=== PATIENT | male | born 1960 | race Caucasian/White ===

== ENCOUNTER 2021-12-01 19:43 | Outpatient (CLI) | payer OTHER | END 2021-12-01 19:44 | disposition critical access hospital (66) | LOC: EMS 19:43 | DX: R55 Syncope and collapse (principal) | CPT/HCPCS: A0425; A0427 ==

== ENCOUNTER 2021-12-01 20:21 | Emergency (ER) | payer OTHER ==
[2021-12-01 21:12] LABS: BASOPHILS % (AUTO) 0.4 %; EOSINOPHILS # (AUTO) 0.2 10^3/uL (0.0-0.7); EOSINOPHILS % (AUTO) 2.2 %; HCT - HEMATOCRIT 44.3 % (42.0-52.0); HGB - HEMOGLOBIN 14.7 g/dL (14.0-18.0); LYMPHOCYTES # (AUTO) 1.6 10^3/uL (1.5-3.5); LYMPHOCYTES % (AUTO) 18.2 %; MEAN CORPUSCULAR HEMOGLOBIN 30.4 pg (27.0-31.0); MEAN CORPUSCULAR HGB CONC 33.2 g/dL (32.0-36.0); MEAN CORPUSCULAR VOLUME 91.5 fL (80.0-94.0); MEAN PLATELET VOLUME 10.2 fL (7.4-11.4); MONOCYTES # (AUTO) 0.7 10^3/uL (0.0-1.0); MONOCYTES % (AUTO) 8.3 %; NEUTROPHILS # (AUTO) 6.3 10^3/uL (1.5-6.6); NEUTROPHILS % (AUTO) 70.7 %; PLT - PLATELET COUNT 213 10^3/uL (130-450); RED BLOOD COUNT 4.84 10^6/uL (4.70-6.10); RED CELL DISTRIBUTION WIDTH 12.3 % (12.0-15.0); WHITE BLOOD COUNT 8.9 x10^3/uL (4.8-10.8)
[2021-12-01 21:26] LABS: ALBUMIN 3.9 g/dL (3.2-5.5); ALBUMIN/GLOBULIN RATIO 1.3 (1.0-2.2); BILIRUBIN,TOTAL 0.5 mg/dL (0.2-1.0); CALCIUM 8.9 mg/dL (8.5-10.3); CREATININE 0.9 mg/dL (0.6-1.2); POTASSIUM 3.8 mmol/L (3.5-5.0)
[2021-12-01] MEDS ORDERED: SODIUM CHLORIDE 0.9% 1,000 ML IV STA (21:37)
--- NOTE | 2021-12-02 00:11 | ED Physician Documentation ---
PD HPI SYNCOPE - Stated complaint Stated Complaint: SYNCOPE - Chief complaint Chief Complaint: Neuro - History obtained from History obtained from: Patient, Family - Additional information Additional information: Patient is a 61-year-old male with no significant past medical history presenting for evaluation after syncopal episode that occurred around 1930. Patient was sitting down having a drink when he started seeing some stars and then reportedly blacked out for a few seconds according to the . She observed that he had some shaking. She denies that he hit his head. When he came to he was not confused or postictal in appearance. He did not have tongue biting or have bladder incontinence. Patient denies hitting his head or a headache. He denies chest pain, difficulty breathing. He reports feeling well now.Patient denies any unusual activity today or unusual appetite. He has had 3 alcoholic beverages today which she reports is unusual for him. Review of Systems Constitutional: denies: Fever Nose: denies: Congestion Throat: denies: Sore throat Cardiac: denies: Chest pain / pressure Respiratory: denies: Dyspnea, Cough GI: denies: Abdominal Pain, Vomiting : denies: Dysuria Musculoskeletal: denies: Back pain Neurologic: reports: Syncope. denies: Headache, Head injury PD PAST MEDICAL HISTORY - Allergies Allergies/Adverse Reactions: Allergies Allergy/AdvReac Type Severity Reaction Status Date / Time No Known Drug Allergies Allergy Verified 12/01/21 20:51 PD ED PE NORMAL - General General: Alert and oriented X 3, No acute distress, Well developed/nourished - HEENT HEENT: Atraumatic, PERRL, EOMI - Neck Neck: Supple, no meningeal sign, No bony TTP - Cardiac Cardiac: RRR, No murmur, Strong equal pulses - Respiratory Respiratory: No respiratory distress, Clear bilaterally - Abdomen Abdomen: Normal bowel sounds, Soft, Non tender, Non distended - Derm Derm: Warm and dry - Extremities Extremities: No edema - Neuro Neuro: Alert and oriented X 3, 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 No: Prolonged QT Ischemia: No: ST elevation c/w ischemia - Labs Labs: Laboratory Tests 12/01/21 12/01/21 12/01/21 21:04 21:04 21:04 WBC 8.9 RBC 4.84 Hgb 14.7 Hct 44.3 MCV 91.5 MCH 30.4 MCHC 33.2 RDW 12.3 Plt Count 213 MPV 10.2 Neut # (Auto) 6.3 Lymph # (Auto) 1.6 [place] # (Auto) 0.7 Eos # (Auto) 0.2 Baso # (Auto) 0.0 Absolute Nucleated RBC 0.00 Nucleated RBC % 0.0 Sodium 140 Potassium 3.8 Chloride 103 Carbon Dioxide 29 Anion Gap 8.0 BUN 18 Creatinine 0.9 Estimated GFR (MDRD) 86 L Glucose 131 H Calcium 8.9 Total Bilirubin 0.5 AST 19 ALT 24 Alkaline Phosphatase 111 Troponin I High Sens 4.7 Total Protein 7.0 Albumin 3.9 Globulin 3.1 Albumin/Globulin Ratio 1.3 Lipase 34 PD MEDICAL DECISION MAKING - ED course Complexity details: reviewed results, re-evaluated patient, d/w patient, d/w family ED course: Patient presenting for evaluation after what sounds like a syncopal episode. describes some shaking movements but there is no postictal period to suggest that this was a seizure. There is no head trauma. Neuro exam has been normal with no signs of stroke or intracranial Bleed. Labs reviewed without significant findings. Patient denies having chest pain or other symptoms to suggest ACS.No arrhythmias noted on monitor. Patient is ambulatory here without any further symptoms. Patient counseled on need for close follow-up with his primary care doctor. Departure - Departure Disposition: 01 Home, Self Care Clinical Impression: Syncope Qualifiers: Syncope type: unspecified Qualified Code(s): R55 - Syncope and collapse Condition: Stable Instructions: ED Fainting Unkn Cause Comments: You were evaluated after a fainting episode. At this time the exact cause of your fainting episode is unclear. Your labs are reassuring and we also do not see signs of a stroke. Please continue to rest and hydrate this weekend. Please limit any alcohol use. If you have any new or worsening symptoms please return to the emergency department. Otherwise please contact your primary care doctor on Saturday for close outpatient follow-up. Discharge Date/Time: 12/02/21 01:05
[2021-12-02 01:07] VITALS: BP 155/76
--- NOTE | 2021-12-02 01:12 | XRAY Report ---
PROCEDURE: Chest 1 View X-Ray INDICATIONS: syncope TECHNIQUE: One view of the chest was acquired. COMPARISON: None. FINDINGS: Surgical changes and devices: None. Lungs and pleura: No pleural effusions or pneumothorax. Lungs are clear. Mediastinum: Mediastinal contours appear normal. Heart size is normal. Bones and chest wall: No suspicious bony lesions. Overlying soft tissues appear unremarkable. IMPRESSION: 1. No acute cardiopulmonary disease. Reviewed by: Master Brown MD on 12/02/2021 1:11 AM PDT Approved by: Master Brown MD on 12/02/2021 1:11 AM PDT Station ID: [id number]
== END 2021-12-02 01:05 | disposition home or self-care (01) ==
LOC: EDUNIT# → ED 20:21
DX: R55 Syncope and collapse (principal)
CPT/HCPCS: 36415; 80053; 83690; 84484; 85025; 93005; 96360; 99283

== ENCOUNTER 2023-08-27 06:59 | Outpatient (CLI) | payer OTHER | END 2023-08-27 23:59 | disposition critical access hospital (66) | LOC: EMS 06:59 | DX: R07.89 Other chest pain (principal); Z91.81 History of falling | CPT/HCPCS: A0425; A0427 ==

== ENCOUNTER 2023-08-27 07:33 | Emergency (ER) | payer OTHER ==
[2023-08-27 08:05] LABS: BASOPHILS % (AUTO) 0.5 %; EOSINOPHILS # (AUTO) 0.3 10^3/uL (0.0-0.7); HCT - HEMATOCRIT 45.8 % (42.0-52.0); HGB - HEMOGLOBIN 14.8 g/dL (14.0-18.0); LYMPHOCYTES # (AUTO) 1.5 10^3/uL (1.5-3.5); LYMPHOCYTES % (AUTO) 16.6 %; MEAN CORPUSCULAR HEMOGLOBIN 29.4 pg (27.0-31.0); MEAN CORPUSCULAR HGB CONC 32.3 g/dL (32.0-36.0); MEAN CORPUSCULAR VOLUME 91.1 fL (80.0-94.0); MONOCYTES # (AUTO) 0.6 10^3/uL (0.0-1.0); MONOCYTES % (AUTO) 7.3 %; NEUTROPHILS # (AUTO) 6.4 10^3/uL (1.5-6.6); NEUTROPHILS % (AUTO) 72.3 %; PLT - PLATELET COUNT 242 10^3/uL (130-450); RED BLOOD COUNT 5.03 10^6/uL (4.70-6.10); WHITE BLOOD COUNT 8.8 x10^3/uL (4.8-10.8)
--- NOTE | 2023-08-27 08:19 | ED Physician Documentation ---
PD HPI CHEST PAIN - Stated complaint Stated Complaint: CHEST PRESSURE - Chief complaint Chief Complaint: Cardiac - History obtained from History obtained from: Patient - History of Present Illness Timing - onset: How many days ago (e) Timing - onset during: Other ([place] and [place]/fell striking left chest on a rock. Pains since that.) Timing - duration: Days (3) Timing - details: Abrupt onset, Still present, Waxing and waning Quality: Aching, Sharp, Pain Location: Left chest Radiation: Back. No: Neck, Abdominal Improved by: Rest Worsened by: Inspiration, Palpation Associated symptoms: Shortness of air. No: Nausea, Vomiting, Feeling faint / dizzy Similar symptoms before: Has not had sx before Review of Systems Constitutional: denies: Fever, Chills Nose: denies: Rhinorrhea / runny nose, Congestion Throat: denies: Sore throat Respiratory: denies: Cough PD PAST MEDICAL HISTORY - Past Medical History Cardiovascular: Hypertension - Present Medications Home Medications: Ambulatory Orders Medication Instructions Recorded Confirmed Albuterol Sulf [Ventolin Hfa 2 - 3 puffs INH QID #1 each 08/27/23 Inhaler] - Allergies Allergies/Adverse Reactions: Allergies Allergy/AdvReac Type Severity Reaction Status Date / Time No Known Drug Allergies Allergy Verified 08/27/23 07:49 - Social History Does the pt smoke?: No Smoking Status: Never smoker Does the pt drink ETOH?: Yes Does the pt have substance abuse?: No PD ED PE NORMAL - Vitals Vital signs reviewed: Yes - General General: Alert and oriented X 3, Well developed/nourished - Neck Neck: Supple, no meningeal sign, No adenopathy, No JVD - Cardiac Cardiac: RRR - Respiratory Respiratory: No respiratory distress, Clear bilaterally, Other (left parasternal chest wall tender but also to left upper abd. splinted breathing from hurting with mechanics of breathing. ) - Abdomen Abdomen: Normal bowel sounds, Soft, Other (some tender left upper abd just at costal margin. ) - Extremities Extremities: No tenderness to palpate, Normal ROM s pain, No edema - Neuro Neuro: Alert and oriented X 3, No motor deficit, No sensory deficit, Normal speech Results - Vitals Vitals: Oxygen O2 Source Room air - EKG (time done) 07:45 EKG releavant findings:: EKG personally interpreted by author of this note. Relevant findings are: Rate: Rate (enter#) (55) Rhythm: Sinus bradycardia Intervals: RBBB Ischemia: Normal ST segments, Non specific changes (c/w RBBB). No: ST elevation c/w ischemia, ST depression Compare to prior EKG: Unchanged from prior EKG (September 2021) - Labs Labs: Laboratory Tests 08/27/23 08/27/23 08:00 08:00 WBC 8.8 RBC 5.03 Hgb 14.8 Hct 45.8 MCV 91.1 MCH 29.4 MCHC 32.3 RDW 13.0 Plt Count 242 MPV 10.0 Neut # (Auto) 6.4 Lymph # (Auto) 1.5 [place] # (Auto) 0.6 Eos # (Auto) 0.3 Baso # (Auto) 0.0 Absolute Nucleated RBC 0.00 Nucleated RBC % 0.0 Sodium 137 Potassium 4.2 Chloride 105 Carbon Dioxide 26 Anion Gap 6.0 BUN 15 Creatinine 0.8 Estimated GFR (MDRD) 98 Glucose 147 H Calcium 9.4 Total Bilirubin 0.5 AST 18 ALT 25 Alkaline Phosphatase 122 H Troponin I High Sens 4.1 Total Protein 7.1 Albumin 4.1 Globulin 3.0 Albumin/Globulin Ratio 1.4 Lipase 26 - Rads (name of study) chest xray is Relevant Findings:: EMP independent interpretation of test (left lower opacitiy likely represents atelectasis. ), See rad report CT chest Relevant Findings:: Prelim report reviewed, EMP independent interpretation of test (no fractures. Scattered scarring and atelectasis at bases and right apex. (Pt without known prior Dx.) Nicronodules. similar to prior imaging. ) PD Medical Decision Making - ED course Complexity details: reviewed results (chest xray without acute notable abnromalities. However, in setting of trauma, it is lower accuracy for example rib injuries. Can get CT as also concerneda bout lung and spleen in that area. ), re-evaluated patient (was given meds for pain and inflammation with good improved pain levels while here.), considered differential (chest pain from mechanical fall striking chest on rocks. Pain locally since. Has normal trop so no cardiac contusion. Xray with atelectasis. CT done for more accuracy and shows atelectasis, scarring, micronodules. Pt to follow up regarding further testing. Has not been to granulomatous dz areas. ), d/w patient ED course: I talked with pt about his CT scan showing prior scarring and apparent atectasis. micronodules noted too. He is not aware of prior Dx. Can folow up with PCP about furher interval imaging, or eval for causes such as granulomatous prior disease, etc. He was given a printed copy of his CT report with Dxs highlighted. Departure - Departure Disposition: 01 Home, Self Care Clinical Impression: Chest wall contusion, Exertional dyspnea, Accidental fall, Abnormal chest xray Condition: Stable Record reviewed to determine appropriate education?: Yes Instructions: ED Contusion Chest Wall, ED Dyspnea Shortness of Breath Prescriptions: Albuterol Sulf [Ventolin Hfa Inhaler] 2 - 3 puffs INH QID #1 each Comments: Your EKG shows a previously known right bundle branch block. There is no acute injury pattern noted on your EKG. Your blood test called troponin is normal as well so again no signs of heart attack or heart inflammation. Your chest x-ray appeared normal without any signs of heart failure. Heart size does not appear enlarged. CT scan did not show any rib fractures nor organ injury. They made note of some very small micronodules and scarring in the lungs which would represent evidence of old prior infections. No obvious acute process going on. It does sound like you have some bruising of the muscles and soft tissue of the chest related to your fall. No fractures. I would anticipate improving over the next week or so. Consider some anti-inflammatory such as ibuprofen or naproxen 2-3 times daily. To that add Tylenol 500 to 650 mg every 4-6 hours if needed. Activity as tolerated. He did comment on feeling short of breath more easily lately even prior to this. Again at this point no signs of obvious heart attack, heart failure or heart enlargement. However shortness with breath with activity can be an indication of or symptom of angina. Follow-up with your primary care for potential outpatient stress testing to ensure no signs of heart disease. Meanwhile we could try seeing if it is your airway/lungs and use inhaler 2-3 times daily and see how your breathing feels overall. Recheck or follow-up if not improved well over the next week or so. I sent prescription for an inhaler to your preferred pharmacy. Forms: PCP List Discharge Date/Time: 08/27/23 13:19
--- NOTE | 2023-08-27 08:24 | XRAY Report ---
PROCEDURE: Chest 1V INDICATIONS: Chest pain TECHNIQUE: One view of the chest was acquired. COMPARISON: None. FINDINGS: Surgical changes and devices: None. Lungs and pleura: Patchy left basilar opacity. Mediastinum: Mediastinal contours appear normal. Heart size is normal. Bones and chest wall: No suspicious bony lesions. Overlying soft tissues appear unremarkable. IMPRESSION: Patchy left basilar opacity likely represents atelectasis, less likely infection. Reviewed by: Preston Vincent MD on 08/27/2023 8:23 AM PDT Approved by: Preston Vincent MD on 08/27/2023 8:23 AM PDT Station ID: [id number]
[2023-08-27 08:27] LABS: ALBUMIN 4.1 g/dL (3.2-5.5); ALBUMIN/GLOBULIN RATIO 1.4 (1.0-2.2); BILIRUBIN,TOTAL 0.5 mg/dL (0.2-1.0); CALCIUM 9.4 mg/dL (8.5-10.3); CREATININE 0.8 mg/dL (0.6-1.3); POTASSIUM 4.2 mmol/L (3.5-4.5); TOTAL PROTEIN 7.1 g/dL (6.4-8.9)
[2023-08-27 08:29] LABS: TROPONIN I HIGH SENSITIVITY 4.1 ng/L (2.3-19.7)
[2023-08-27] MEDS ORDERED: iohexoL-300 100 ML VIAL ONE (09:05)
[2023-08-27] MEDS: ACETAMINOPHEN 500 MG TABLET PO STA (09:11)
[2023-08-27] MEDS: KETOROLAC 30 MG/ML VIAL IVP STA (09:11)
--- NOTE | 2023-08-27 10:03 | CT Report ---
PROCEDURE: Chest W INDICATIONS: fall with ant/left lower chest pain CONTRAST: Omni 300 100ml TECHNIQUE: After the administration of intravenous contrast, a CT scan of the chest was performed. Images were recorded and evaluated at appropriate window settings. Reformats: axial MIP of the chest, coronal and sagittal. For radiation dose reduction, the following was used: automated exposure control, adjustme nt of mA and/or kV according to patient size. COMPARISON: Same-day radiograph FINDINGS: Image quality: Diagnostic Lungs and pleura:Scattered areas of scarring and atelectasis, most notably at the bases and right ape x. No dense airspace disease or pleural effusions. No pneumothorax. Micronodules and granulomas are p resent, for which follow-up imaging is optional for high-risk patients, for example on the right cost ophrenic angle image . Mediastinum, heart, and esophagus: No mediastinal hematoma. Heart size is at the upper limit of ashly l. There are coronary calcifications. No hiatal hernia. No pathologic lymph nodes by size criteria Chest wall and thyroid: No actionable thyroid nodule identified. Chest wall is unremarkable Upper abdomen: No gross abnormality, partially visualized Bones: Degenerative changes. No displaced osseous injury identified. IMPRESSION: No acute traumatic injury identified. Bibasilar mild pulmonary atelectasis and scarring, including at the right apex. No pneumothorax or pl eural effusions. Coronary calcifications. Other findings above. Reviewed by: Rigo Lewis MD on 08/27/2023 10:02 AM PDT Approved by: Rigo Lewis MD on 08/27/2023 10:02 AM PDT Station ID: [id number]
[2023-08-27 11:11] VITALS: BP 144/93; O2SAT 95
[2023-08-27] MEDS: iohexoL-300 100 ML VIAL IVP ONE (13:58)
== END 2023-08-27 13:19 | disposition home or self-care (01) ==
LOC: EDUNIT# → ED 07:33
DX: S20.219A Contusion of unspecified front wall of thorax, initial encounter (principal); W01.0XXA Fall on same level from slipping, tripping and stumbling without subsequent striking against object, initial encounter; Y92.832 Beach as the place of occurrence of the external cause; I10 Essential (primary) hypertension; R06.09 Other forms of dyspnea
CPT/HCPCS: 36415; 71045; 71260; 80053; 83690; 84484; 85025; 93005; 96374; 99284; A9270; Q9967